=== PATIENT | male | born 1995 | race Caucasian/White ===

== ENCOUNTER 2018-02-24 00:20 | Emergency (ER) | payer MEDICAID ==
[~2018-02-24] VITALS: Ht 185.4 cm; Wt 88.5 kg
== END 2018-02-24 02:15 | disposition home or self-care (01) ==
LOC: ED 00:20
DX: J45.901 Unspecified asthma with (acute) exacerbation (principal); F41.9 Anxiety disorder, unspecified; F32.9 Major depressive disorder, single episode, unspecified; F17.200 Nicotine dependence, unspecified, uncomplicated; Z88.8 Allergy status to other drugs, medicaments and biological substances
CPT/HCPCS: 99284